=== PATIENT | female | born 1950 | race Caucasian/White ===

== ENCOUNTER → 2020-01-29 23:14 | Outpatient (CLI) | payer MEDICARE, BC ==
[2013-01-18 14:19] VITALS: BMI 25.0
[~2020-01-29 23:14] MED LIST: ADIPEX-P37.5 M1 PO; CELEBREX200 MG PO; DHEA25 M1; ESTRACE1 MG PO; IMITREX100 MG; PROMETRIUM200 MG PO; PROZAC10 MG PO; SYNTHROID125 MCG PO; TRIPLE ANTIBI28.4 GM TP; TYLENOL W/CODEI1 TAB PO; VITAMIN D5000 UNIT PO; [UNRECOGNIZED DRUG - OTHER] PO
== END | disposition home or self-care (01) ==
LOC: D.MAMMO 10:45
PROVIDERS: ATTEND Family Medicine
DX: Z12.31 Encounter for screening mammogram for malignant neoplasm of breast (principal)